=== PATIENT | male | born 1970 | race Caucasian/White ===

== ENCOUNTER 2024-01-04 22:17 | Emergency (ER) | payer MEDICAID, MEDICARE ==
[~2024-01-04] VITALS: Ht 165.1 cm; Wt 114.0 kg
[2024-01-04 22:43] VITALS: O2SAT 97
[2024-01-05 01:35] VITALS: BP 134/98; PULSE 74; RESP 14; TEMP 98.1
[2024-01-05] MEDS: TRANEXAMIC ACID 1,000MG/10ML IV ONE (01:48)
== END 2024-01-05 01:40 | disposition home or self-care (01) ==
LOC: ER 22:17
DX: K08.89 Other specified disorders of teeth and supporting structures (principal); E11.9 Type 2 diabetes mellitus without complications; I10 Essential (primary) hypertension
CPT/HCPCS: 96374; 99283

== ENCOUNTER 2025-01-08 11:56 | Emergency (ER) | payer MEDICARE ==
[~2025-01-08] VITALS: Ht 172.7 cm; Wt 90.0 kg
[2025-01-08 12:13] VITALS: O2SAT 100
[2025-01-08] MEDS: IBUPROFEN 800MG TABLET PO ONE (14:10)
[2025-01-08] MEDS ORDERED: IBUP-2029 MT (14:56)
[2025-01-08 15:31] VITALS: BP 137/85; PULSE 63; RESP 16; TEMP 36.9; O2SAT 97
== END 2025-01-08 15:34 | disposition home or self-care (01) ==
LOC: ER 11:56
DX: M79.671 Pain in right foot (principal); E11.9 Type 2 diabetes mellitus without complications; I10 Essential (primary) hypertension
CPT/HCPCS: 73650; 99283